=== PATIENT | female | born 1990 | race Caucasian/White ===

== ENCOUNTER 2016-07-03 04:19 | Emergency (ER) | payer OTHER ==
[2016-07-03] MEDS ORDERED: dexameTHASONE 20 MG/5 ML VIAL (J1100) As Ordered ONE (07:14)
[2016-07-03] MEDS ORDERED: MORPHINE 4 MG/ML 1ML SYRINGE As Ordered ONE (07:14)
[2016-07-03] MEDS ORDERED: ONDANSETRON 4MG/2ML VIAL (J2405) As Ordered ONE (07:15)
[2016-07-03] MEDS ORDERED: CLINDAMYCIN INJ 900MG/6ML VIAL As Ordered ONE (07:15)
[2016-07-03 07:55] LABS: CONTROL LINE HCG INT CTR LINE PRESENT; CONTROL LINE MONO INT CTR LINE PRESENT
[2016-07-03 08:02] LABS: ALBUMIN 3.4 GM/DL (3.2-5.2); ALBUMIN/GLOBULIN RATIO 0.81 (1.00-1.93); ALKALINE PHOSPHATASE 82 U/L (45-117); ALT/SGPT 17 U/L (12-78); ANION GAP 10 MEQ/L (8-16); AST/SGOT 10 U/L (15-37); BILIRUBIN,DIRECT 0.2 MG/DL (0.0-0.2); BILIRUBIN,TOTAL 0.7 MG/DL (0.2-1.0); BLOOD UREA NITROGEN 6 MG/DL (7-18); CALCIUM LEVEL 8.5 MG/DL (8.5-10.1); CARBON DIOXIDE LEVEL 23 MEQ/L (21-32); CHLORIDE LEVEL 107 MEQ/L (98-107); CREATININE FOR GFR 0.78 MG/DL (0.55-1.02); GLOMERULAR FILTRATION RATE > 60.0 (>60); GLUCOSE, FASTING 99 MG/DL (70-105); POTASSIUM SERUM 3.5 MEQ/L (3.5-5.1); SODIUM LEVEL 140 MEQ/L (136-145); TOTAL PROTEIN 7.6 GM/DL (6.4-8.2)
[2016-07-03] MEDS ORDERED: ISOVUE-370 76% 100ML VIAL (Q9967) As Ordered ONE (08:14)
[2016-07-03 08:25] LABS: BASO % 0.2 % (0.0-1.0); EOS % 0.3 % (0.0-3.0); LARGE UNSTAINED CELL # 0.2 K/mm3 (0.0-0.4); LARGE UNSTAINED CELL % 1.2 % (0.0-4.0); LYMPH # 1.3 K/mm3 (1.5-6.5); LYMPH % 7.5 % (24.0-44.0); MEAN CORPUSCULAR HEMOGLOBIN 28.5 pg (27.0-33.0); MEAN CORPUSCULAR HGB CONC 34.2 g/dl (32.0-36.5); MEAN CORPUSCULAR VOLUME 83.3 fl (80.0-96.0); MONO # 0.9 K/mm3 (0.0-0.8); MONO % 5.4 % (0.0-5.0); NEUTROPHILS # 14.4 K/mm3 (1.8-7.7); NEUTROPHILS % 85.5 % (36.0-66.0); PLATELET COUNT, AUTOMATED 163 k/mm3 (150-450); RED CELL DISTRIBUTION WIDTH 12.9 % (11.5-14.5); WHITE BLOOD COUNT 16.8 K/mm3 (4.0-10.0)
--- NOTE | 2016-07-03 09:11 | REP ---
CT NECK WITH CONTRAST: HISTORY: Rule out abscess. CONTRAST: Isovue 370, 75 mL. There is mild enlargement of the tonsils. There is extension of the tonsillar enlargement into the soft palate. There is inferior extension of the tonsillar enlargement into the lateral brown of the oropharynx. There is mild mass effect on the oropharynx. The naso- and hypopharynx, larynx and subglottic trachea are normal in appearance. The salivary and thyroid glands are normal. An enlarged lymph node 1.4 cm in width is present in the right internal jugular chain at the level of the princess- and hypopharynx. Enlarged lymph nodes 1.3 and 1.1 cm in width are present in the left internal jugular chain at the level of the princess- and hypopharynx. Small lymph nodes less than 1 cm in size are present in the posterior triangles, submandibular and submental areas. The lung apices are clear. The visualized sinuses are clear. IMPRESSION: The above findings are consistent with tonsillitis and lymphadenitis. There is mild mass effect in the oropharynx. Signed by Prashant Leahy MD 07/03/2016 09:23 A
[2016-07-03] MEDS ORDERED: IBUPROFEN 100 MG/5 ML SUSP UDC DYE FREE As Ordered ONE (09:43)
--- NOTE | 2016-07-03 10:56 | EDDOCDS ---
Nurse's Notes [facility] Name: Lucina Adhikari Age: 26 yrs Sex: Female : 1990 Arrival Date: 07/03/2016 Time: 04:19 Bed I1 / M1 Private MD: Diagnosis: Acute tonsillitis-strep Presentation: 07/03 04:26 Presenting complaint: Patient states: Was seen at Urgent Care yesterday and diagnosed kmg1 with Strep Throat and was given antibiotics. This morning pain is increased, fever persists, difficulty swallowing. Risk factors: Stridor is not present. Drooling is not present. Shortness of breath is not present. Cellulitis is not present. Suicide/Homicide risk assessment- the patient denies having any suicidal and/or homicidal ideations and does not present with any other emotional, behavioral or mental health complaints. Status: Patient is not a service administrator or dependent. Transition of care: patient was not received from another setting of care. 04:26 Acuity: DEBBIE Level 4 [facility] [place] 04:26 Method Of Arrival: Walkin/Carried/Asstd [facility] [place] 09:39 Adult Sepsis Screening: The patient does not have new or worsening altered mentation. jc4 Patient's respiratory rate is less than 22. Systolic blood pressure is greater than 100. Patient has a qSOFA score of 0- Negative Sepsis Screen. Triage Assessment: 04:30 General: Appears in no apparent distress, comfortable, well nourished, well groomed, km Behavior is appropriate for age, cooperative, pleasant. Pain: Location: throat Pain currently is 9 out of 10 on a pain scale. Quality of pain is described as sharp, Also complains of difficulty swallowing. Pt Declines HIV testing. EENT: Reports sore throat. 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 BCP 1 tab once daily (Last dose: 07/02/2016) 2. clindamycin HCl 300 mg Oral cap 1 cap 2 times per day (Last dose: 07/03/2016 04:00) - PMHx: none; - PSHx: none; - Social history: Smoking status: Patient states former smoker of tobacco. No barriers to communication noted, The patient speaks fluent Filipino, Speaks appropriately for age, Preferred Language: Filipino. - Family history: Not pertinent. - : The pt / caregiver states he / she is not on anticoagulants. Home medication list is obtained from the patient. - Exposure Risk Screening:: None identified. Screenin:14 Screening information is obtained from the patient. Primary language is Filipino. Fall jam1 risk: No risks identified. Assistance ADL's: requires no assistance with activities of daily living. Abuse/DV Screen: The patient / caregiver reports he/she is: not in a situation that causes fear, pain or injury. Nutritional screening: No deficits noted. Exposure Risk Screening: None identified. Advance Directives: Currently, there is no health care proxy. There is no active DNR order. There is no living will. 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 Advance directive information has not previously been placed in an [facility] medical record. Further advance directive information is declined. home support is adequate. Assessment: 07:40 General: Appears in no apparent distress, Behavior is appropriate for age, cooperative. ja5 Pain: Location: throat Pain currently is 10 out of 10 on a pain scale. Neurological: Level of Consciousness is awake, alert, Oriented to person, place, time. EENT: Throat is reddened has enlarged tonsils bilaterally. Cardiovascular: Capillary refill < 3 seconds Heart tones S1 S2 present. Respiratory: Airway is patent Respiratory effort is even, unlabored, Respiratory pattern is regular, symmetrical, Breath sounds are clear bilaterally. Derm: Skin is pink, warm & dry. face flushed. 08:30 General: Pt resting on stretcher. No distress noted at this time. Color pink, skin warm jc4 and dry. Respirations easy and full. No difficulty accommodating saliva. IVF infusing well. Pt aware awaiting results of CT. 09:38 General: Pt resting on stretcher. No difficulty swallowing noted at this time. Color jc4 pink, skin warm and dry. Respirations easy and full. Saline lock in place. Pt has called mother who is travelling from [place] to pick her up. 10:53 General: Appears in no apparent distress, Behavior is cooperative, pleasant. Pain: Pain jc4 currently is 7 out of 10 on a pain scale. Neurological: Level of Consciousness is awake, alert, Oriented to person, place, time. EENT: Reports pain when swallowing and is improved since time of arrival. Respiratory: Airway is patent Respiratory effort is even, unlabored, Respiratory pattern is regular, symmetrical. Derm: Skin is pink, warm & dry. Vital Signs: 04:30 BP 113 / 74; Pulse 93; Resp 20; Temp 98.5(TE); Pulse Ox 97.0% on R/A; Weight 72.57 kg [facility] [place] (R); Height 5 ft. 3 in. (160.02 cm) (R); Pain 9/10; 07:13 BP 131 / 78; Pulse 90; Resp 18; Temp 98.0(O); Pulse Ox 97% ; Pain 10/10; jam1 09:33 BP 123 / 58; Pulse 87; Resp 20; Temp 97.2(O); Pulse Ox 96% on R/A; Pain 8/10; jc4 04:30 Body Mass Index 28.34 (72.57 kg, 160.02 cm) [facility] [place] Vitals: 04:30 Log In Time: July 03, 2016 at 04:21. [facility] [place] ED Course: 04:20 Patient visited by Radha Hercules, Reg. hs2 04:20 Patient moved to Waiting 2 04:28 Triage Initiated [facility] [place] 04:57 [facility] Payment Agreement was scanned into [employer] and attached to record. [facility] 05:13 Patient name changed from Lucina\S\\S\Adhikari\S\ to Lucina\S\Barbara\S\Adhikari. EDMS 07:00 Patient moved to I1 / M1 kcs 07:01 Cathy Torres,RN is Primary Nurse. ja5 07:02 Patient visited by Greg Sotelo MD. ml 07:03 Seven Bynum PA-C is PHCP. cc10 07:03 Greg Sotelo MD is Attending Physician. cc10 07:03 Patient visited by Seven Bynum PA-C. cc10 07:04 Keri Bahena, AIDAN is Primary Nurse. jc4 07:13 Seven Bynum PA-C is PHCP. cc10 07:14 Pt greeted and oriented to ED. Patient advised of names of staff involved in care, jam1 location of call [place], wait times and NPO status. Patient has correct armband on for positive identification. Bed in low position. Call light in reach. Side rails up X 1. Door closed. 07:28 BLOOD CULTURES Sent. jc4 07:28 HCG,Serum Qualitative Sent. jc4 07:28 Monoscreen Sent. jc4 07:28 Liver Profile Sent. jc4 07:28 -Blood Culture Sent. jc4 07:28 MED Profile Sent. jc4 07:28 CBC with Diff Sent. jc4 07:29 Inserted saline lock: 20 gauge in right antecubital area The patient tolerated the jc4 procedure well. 07:35 The patient / caregiver is instructed regarding the plan of care and ED course. jc4 07:39 Patient visited by Cathy Torres RN. ja5 08:[address] jc4 08:29 Patient visited by Keri Bahena RN. jc4 08:29 Patient moved to I1 / M1 jc4 09:28 CT Neck With Contrast Returned. EDMS 10:54 Discontinued lock intact, bleeding controlled, pressure dressing applied, No jc4 redness/swelling at site. No procedures done that require assistance. Administered Medications: 07:24 Drug: NS 0.9% 1000 ml [sodium chloride 0.9 % intravenous solution] Route: IV; Rate: ja5 bolus; Site: right antecubital; 09:33 Follow up: BP 123 / 58; Pulse 87 bpm; Resp 20 bpm; Temp 97.2 Oral; Pulse Ox 96% RA; 4 Pain 8/10 Adult; IV Status: Completed infusion; IV Intake: 1000ml 07:25 Drug: morphine 4 mg [morphine 4 mg/mL intravenous cartridge (1 mL)] Route: IVP; Site: [facility] right antecubital; 08:30 Follow up: Response: No significant change. [facility] 07:30 Drug: Ondansetron 4 mg [ondansetron HCl 2 mg/mL intravenous solution (2 mL)] Route: ja5 IVP; Site: right antecubital; 07:36 Drug: Clindamycin 900 mg [clindamycin 900 mg/50 mL in 5 % dextrose intravenous ja5 piggyback] Route: IVPB; Infused Over: 30 mins; Site: right antecubital; 08:48 Follow up: IV Status: Completed infusion; IV Intake: 50ml jc4 07:38 Drug: Dexamethasone 10 mg [dexamethasone 4 mg/mL injection solution] Route: IV; Rate: ja5 bolus; Site: right antecubital; 09:47 Drug: Ibuprofen (10mg/kg) 600 mg [ibuprofen 100 mg/5 mL oral suspension (30 mL)] Route: jc4 PO; Intake: 08:48 IV: 50.00ml; Total: 50.00ml. jc4 09:33 IV: 1000.00ml; Total: 1050.00ml. jc4 Order Results: Lab Order: CBC with Diff; SPEC'M 07/03/16 07:18 Test: WHITE BLOOD COUNT; Value: 16.8; Range: 4.0-10.0; Abnormal: Above high normal; Units: K/mm3; Status: F Test: RED BLOOD COUNT; Value: 4.82; Range: 4.00-5.40; Units: M/mm3; Status: F Test: HEMOGLOBIN; Value: 13.7; Range: 12.0-16.0; Units: g/dl; Status: F Test: HEMATOCRIT; Value: 40.2; Range: 36.0-47.0; Units: %; Status: F Test: MEAN CORPUSCULAR VOLUME; Value: 83.3; Range: 80.0-96.0; Units: fl; Status: F Test: MEAN CORPUSCULAR HEMOGLOBIN; Value: 28.5; Range: 27.0-33.0; Units: pg; Status: F Test: MEAN CORPUSCULAR HGB CONC; Value: 34.2; Range: 32.0-36.5; Units: g/dl; Status: F Test: RED CELL DISTRIBUTION WIDTH; Value: 12.9; Range: 11.5-14.5; Units: %; Status: F Test: PLATELET COUNT, AUTOMATED; Value: 163; Range: 150-450; Units: k/mm3; Status: F Test: NEUTROPHILS %; Value: 85.5; Range: 36.0-66.0; Abnormal: Above high normal; Units: %; Status: F Test: LYMPH %; Value: 7.5; Range: 24.0-44.0; Abnormal: Below low normal; Units: %; Status: F Test: MONO %; Value: 5.4; Range: 0.0-5.0; Abnormal: Above high normal; Units: %; Status: F Test: EOS %; Value: 0.3; Range: 0.0-3.0; Units: %; Status: F Test: BASO %; Value: 0.2; Range: 0.0-1.0; Units: %; Status: F Test: LARGE UNSTAINED CELL %; Value: 1.2; Range: 0.0-4.0; Units: %; Status: F Test: NEUTROPHILS #; Value: 14.4; Range: 1.8-7.7; Abnormal: Above high normal; Units: K/mm3; Status: F Test: LYMPH #; Value: 1.3; Range: 1.5-6.5; Abnormal: Below low normal; Units: K/mm3; Status: F Test: MONO #; Value: 0.9; Range: 0.0-0.8; Abnormal: Above high normal; Units: K/mm3; Status: F Test: EOS #; Value: 0.0; Range: 0.0-0.50; Units: K/mm3; Status: F Test: BASO #; Value: 0.0; Range: 0.0-0.2; Units: K/mm3; Status: F Test: LARGE UNSTAINED CELL #; Value: 0.2; Range: 0.0-0.4; Units: K/mm3; Status: F Lab Order: MED Profile; SPEC'M 07/03/16 07:18 Test: GLUCOSE, FASTING; Value: 99; Range: 70-105; Units: MG/DL; Status: F Test: BLOOD UREA NITROGEN; Value: 6; Range: 7-18; Abnormal: Below low normal; Units: MG/DL; Status: F Test: CREATININE FOR GFR; Value: 0.78; Range: 0.55-1.02; Units: MG/DL; Status: F Test: SODIUM LEVEL; Range: 136-145; Units: MEQ/L; Status: I Test: POTASSIUM SERUM; Range: 3.5-5.1; Units: MEQ/L; Status: I Test: CHLORIDE LEVEL; Range: 98-107; Units: MEQ/L; Status: I Test: CARBON DIOXIDE LEVEL; Range: 21-32; Units: MEQ/L; Status: I Test: ANION GAP; Range: 8-16; Units: MEQ/L; Status: I Test: CALCIUM LEVEL; Range: 8.5-10.1; Units: MG/DL; Status: I Test: GLOMERULAR FILTRATION RATE; Value: > 60.0; Range: >60; Status: F Test: SODIUM LEVEL; Value: 140; Range: 136-145; Units: MEQ/L; Status: F Test: POTASSIUM SERUM; Value: 3.5; Range: 3.5-5.1; Units: MEQ/L; Status: F Test: CHLORIDE LEVEL; Value: 107; Range: 98-107; Units: MEQ/L; Status: F Test: CARBON DIOXIDE LEVEL; Value: 23; Range: 21-32; Units: MEQ/L; Status: F Test: ANION GAP; Value: 10; Range: 8-16; Units: MEQ/L; Status: F Test: CALCIUM LEVEL; Value: 8.5; Range: 8.5-10.1; Units: MG/DL; Status: F Test Note: ; Units are mL/min/1.73 m2 Chronic Kidney Disease Staging per NKF: Stage I & II GFR >=60 Normal to Mildly Decreased Stage III GFR 30-59 Moderately Decreased Stage IV GFR 15-29 Severely Decreased Stage V GFR <15 Very Little GFR Left ESRD GFR <15 on OUTSIDE INSTALLATION MACHINIST Lab Order: Liver Profile; SPEC'M 07/03/16 07:18 Test: AST/SGOT; Value: 10; Range: 15-37; Abnormal: Below low normal; Units: U/L; Status: F Test: ALT/SGPT; Value: 17; Range: 12-78; Units: U/L; Status: F Test: ALKALINE PHOSPHATASE; Value: 82; Range: 45-117; Units: U/L; Status: F Test: BILIRUBIN,TOTAL; Value: 0.7; Range: 0.2-1.0; Units: MG/DL; Status: F Test: BILIRUBIN,DIRECT; Value: 0.2; Range: 0.0-0.2; Units: MG/DL; Status: F Test: TOTAL PROTEIN; Value: 7.6; Range: 6.4-8.2; Units: GM/DL; Status: F Test: ALBUMIN; Value: 3.4; Range: 3.2-5.2; Units: GM/DL; Status: F Test: ALBUMIN/GLOBULIN RATIO; Value: 0.81; Range: 1.00-1.93; Abnormal: Below low normal; Status: F Lab Order: Monoscreen; SPEC'M 07/03/16 07:18 Test: MONO SCRN; Value: NEGATIVE; Range: NEGATIVE; Status: F Lab Order: HCG,Serum Qualitative; SPEC'M 07/03/16 07:18 Test: HCG, SERUM QUALITATIVE; Value: NEGATIVE; Range: NEGATIVE; Status: F Radiology Order: CT Neck With Contrast Test: CT Neck With Contrast REASON FOR EXAMINATION: r/o abscess; CT NECK WITH CONTRAST:; ; HISTORY: Rule out abscess.; ; CONTRAST: Isovue 370, 75 mL.; ; There is mild enlargement of the tonsils. There is extension of the tonsillar; enlargement into the soft palate. There is inferior extension of the tonsillar; enlargement into the lateral brown of the oropharynx. There is mild mass effect; on the oropharynx. The naso- and hypopharynx, larynx and subglottic trachea are; normal in appearance. The salivary and thyroid glands are normal. An enlarged; lymph node 1.4 cm in width is present in the right internal jugular chain at the; level of the princess- and hypopharynx. Enlarged lymph nodes 1.3 and 1.1 cm in width; are present in the left internal jugular chain at the level of the princess- and; hypopharynx. Small lymph nodes less than 1 cm in size are present in the; posterior triangles, submandibular and submental areas. The lung apices are; clear. The visualized sinuses are clear.; ; IMPRESSION:; ; The above findings are consistent with tonsillitis and lymphadenitis. There is; mild mass effect in the oropharynx.; ; ; Signed by; Prashant Leahy MD 07/03/2016 09:23 A; Outcome: 09:26 Discharge ordered by Provider. cc10 10:54 Discharge Assessment: Patient awake, alert and oriented x 3. No cognitive and/or jc4 functional deficits noted. Patient verbalized understanding of disposition instructions. patient administered narcotics - yes. Pt provided with safe discharge. The following High Risk Discharge criteria are identified: None. Discharged to home ambulatory, with uncle. Condition: stable. Discharge instructions given to patient, Instructed on discharge instructions, follow up and referral plans. medication usage, Demonstrated understanding of instructions, medications, Pt was receptive of discharge instructions/ teaching. CT Study completed. Property :Personal belongings accompany Pt. 10:55 Patient left the ED. jc4 Signatures: Dispatcher [employer] [facility] Greg Sotelo MD MD ml Ashley Baxter, RN RN Ines Carroll, RN RN kmg1 Lindsay Stern, ARTIFICIAL INSEMINATOR ARTIFICIAL INSEMINATOR jam1 Keri Bahena, RN RN jc4 Seven Bynum, PA-C PA-C cc10 Kerri Corey [facility] Radha Hercules, Reg Reg hs2 Cathy TorresRN RN ja5 Corrections: (The following items were deleted from the chart) 07:50 07:35 morphine 4 mg IVP in right antecubital ja5 [facility] 07:51 07:36 Ondansetron 4 mg IVP in right antecubital ja5 5 07:52 07:36 Dexamethasone 10 mg IV at bolus in right antecubital 5 [facility] 07:53 07:37 NS 0.9% 1000 ml IV at bolus in right antecubital 5 [facility] 07:54 07:52 Dexamethasone 10 mg IV at bolus in right antecubital [place] [id number] MTDD
--- NOTE | 2016-07-03 10:56 | EDDOCDS ---
Physician Documentation [facility] Name: Lucina Adhikari Age: 26 yrs Sex: Female : 1990 Arrival Date: 07/03/2016 Time: 04:19 Bed I1 / M1 Private MD: Disposition: 07/03/16 09:26 Discharged to Home/Self Care. Impression: Acute tonsillitis - strep. - Condition is Stable. - Discharge Instructions: Tonsillitis. - Prescriptions for lidocaine HCl 2 % Mucous Membrane solution - take 15 milliliter by ORAL route every 3 hours swish, gargle and spit.; 200 milliliter. Prednisone 20 mg Oral Tablet - take 2 tablets by ORAL route once daily for 3 days; 6 tablet. - Medication Reconciliation, Local Pharmacy Hours form. - Follow up: Private Physician; When: Call to arrange an appointment; Reason: Wound/Symptom Recheck, Recheck today's complaints, Worsening of conditions, Continuance of care. - Problem is an ongoing problem. - Symptoms have improved. Historical: - Allergies: Amoxicillin (Rash); - Home Meds: 1. BCP 1 tab once daily (Last dose: 07/02/2016) 2. clindamycin HCl 300 mg Oral cap 1 cap 2 times per day (Last dose: 07/03/2016 04:00) - PMHx: none; - PSHx: none; - Social history: Smoking status: Patient states former smoker of tobacco. No barriers to communication noted, The patient speaks fluent Liberian, Speaks appropriately for age, Preferred Language: Liberian. - Family history: Not pertinent. - : The pt / caregiver states he / she is not on anticoagulants. Home medication list is obtained from the patient. - Exposure Risk Screening:: None identified. 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 3 in. (160.02 cm) (R); Pain 9/10; 07:13 BP 131 / 78; Pulse 90; Resp 18; Temp 98.0(O); Pulse Ox 97% ; Pain 10/10; jam1 09:33 BP 123 / 58; Pulse 87; Resp 20; Temp 97.2(O); Pulse Ox 96% on R/A; Pain 8/10; jc4 04:30 Body Mass Index 28.34 (72.57 kg, 160.02 cm) kmg1 MDM: 04:57 [facility] Payment Agreement was scanned into [employer] and attached to record. slh 07:06 IV Saline Lock ordered. ml 07:06 -Blood Culture (Adults Only), peripheral from different site, or from device/port/PICC ml etc. if present ordered. 07:06 NS 0.9% 1000 ml IV at bolus once ordered. ml 07:06 Ondansetron 4 mg IVP once ordered. ml 07:06 Dexamethasone 10 mg IV at bolus once ordered. ml 07:06 Clindamycin 900 mg IVPB once over 30 mins; dilute in 50mL of NS or D5W ordered. ml 07:07 CBC with Diff Ordered. EDMS 07:07 MED Profile Ordered. EDMS 07:07 -Blood Culture Ordered. EDMS 07:07 Liver Profile Ordered. EDMS 07:07 Monoscreen Ordered. EDMS 07:07 HCG,Serum Qualitative Ordered. EDMS 07:08 morphine 4 mg IVP once ordered. ml 07:12 CT Neck With Contrast Ordered. EDMS 07:16 Financial registration complete. hs2 07:21 -Blood Culture (Adults Only), peripheral from different site, or from device/port/PICC rs6 etc. if present complete. 07:23 BLOOD CULTURES Ordered. EDMS 07:50 morphine 4 mg IVP once ordered. ja5 07:51 Ondansetron 4 mg IVP once ordered. ja5 07:52 Dexamethasone 10 mg IV at bolus once ordered. ja5 07:53 NS 0.9% 1000 ml IV at bolus once ordered. ja5 07:54 Dexamethasone 10 mg IV at bolus once ordered. ja5 08:04 MED Profile Reviewed. cc10 08:04 Liver Profile Reviewed. cc10 08:04 Monoscreen Reviewed. cc10 08:04 HCG,Serum Qualitative Reviewed. cc10 08:36 CBC with Diff Reviewed. cc10 09:43 Ibuprofen (10mg/kg) Suspension 600 mg PO once; not to exceed 800 milligrams ordered. cc10 Administered Medications: 07:24 Drug: NS 0.9% 1000 ml [sodium chloride 0.9 % intravenous solution] Route: IV; Rate: ja5 bolus; Site: right antecubital; 09:33 Follow up: BP 123 / 58; Pulse 87 bpm; Resp 20 bpm; Temp 97.2 Oral; Pulse Ox 96% RA; jc4 Pain 8/10 Adult; IV Status: Completed infusion; IV Intake: 1000ml 07:25 Drug: morphine 4 mg [morphine 4 mg/mL intravenous cartridge (1 mL)] Route: IVP; Site: ja5 right antecubital; 08:30 Follow up: Response: No significant change. jc4 07:30 Drug: Ondansetron 4 mg [ondansetron HCl 2 mg/mL intravenous solution (2 mL)] Route: ja5 IVP; Site: right antecubital; 07:36 Drug: Clindamycin 900 mg [clindamycin 900 mg/50 mL in 5 % dextrose intravenous ja5 piggyback] Route: IVPB; Infused Over: 30 mins; Site: right antecubital; 08:48 Follow up: IV Status: Completed infusion; IV Intake: 50ml jc4 07:38 Drug: Dexamethasone 10 mg [dexamethasone 4 mg/mL injection solution] Route: IV; Rate: ja5 bolus; Site: right antecubital; 09:47 Drug: Ibuprofen (10mg/kg) 600 mg [ibuprofen 100 mg/5 mL oral suspension (30 mL)] Route: jc4 PO; Signatures: Dispatcher [employer] EDDE Greg Sotelo MD MD Ines Maier RN RN kmg1 Keri Bahena RN RN jc4 Seven Bynum PA-C PA-C cc10 Kerri Corey Rebecca, ROLL INSPECTOR ROLL INSPECTOR rs6 Radha Hercules, Reg Reg hs2 Cathy Torres,RN RN ja5 The chart was reviewed and I authenticate all verbal orders and agree with the evaluation and treatment provided.Attachments: 04:57 [facility] Payment Agreement [facility] MTDD
--- NOTE | 2016-07-05 11:56 | EDDOCDS ---
Nurse's Notes [facility] Name: Lucina Adhikari Age: 26 yrs Sex: Female : 1990 Arrival Date: 07/03/2016 Time: 04:19 Bed I1 / M1 Private MD: Diagnosis: Acute tonsillitis-strep Presentation: 07/03 04:26 Presenting complaint: Patient states: Was seen at Urgent Care yesterday and diagnosed kmg1 with Strep Throat and was given antibiotics. This morning pain is increased, fever persists, difficulty swallowing. Risk factors: Stridor is not present. Drooling is not present. Shortness of breath is not present. Cellulitis is not present. Suicide/Homicide risk assessment- the patient denies having any suicidal and/or homicidal ideations and does not present with any other emotional, behavioral or mental health complaints. Status: Patient is not a director of women's services or dependent. Transition of care: patient was not received from another setting of care. 04:26 Acuity: DEBBIE Level 4 [facility] 04:26 Method Of Arrival: Walkin/Carried/[place] [facility] 09:39 Adult Sepsis Screening: The patient does not have new or worsening altered mentation. jc4 Patient's respiratory rate is less than 22. Systolic blood pressure is greater than 100. Patient has a qSOFA score of 0- Negative Sepsis Screen. Triage Assessment: 04:30 General: Appears in no apparent distress, comfortable, well nourished, well groomed, km Behavior is appropriate for age, cooperative, pleasant. Pain: Location: throat Pain currently is 9 out of 10 on a pain scale. Quality of pain is described as sharp, Also complains of difficulty swallowing. Pt Declines HIV testing. EENT: Reports sore throat. 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 BCP 1 tab once daily (Last dose: 07/02/2016) 2. clindamycin HCl 300 mg Oral cap 1 cap 2 times per day (Last dose: 07/03/2016 04:00) - PMHx: none; - PSHx: none; - Social history: Smoking status: Patient states former smoker of tobacco. No barriers to communication noted, The patient speaks fluent Namibian, Speaks appropriately for age, Preferred Language: Namibian. - Family history: Not pertinent. - : The pt / caregiver states he / she is not on anticoagulants. Home medication list is obtained from the patient. - Exposure Risk Screening:: None identified. Screenin:14 Screening information is obtained from the patient. Primary language is Namibian. Fall jam1 risk: No risks identified. Assistance ADL's: requires no assistance with activities of daily living. Abuse/DV Screen: The patient / caregiver reports he/she is: not in a situation that causes fear, pain or injury. Nutritional screening: No deficits noted. Exposure Risk Screening: None identified. Advance Directives: Currently, there is no health care proxy. There is no active DNR order. There is no living will. 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 Advance directive information has not previously been placed in an [facility] medical record. Further advance directive information is declined. home support is adequate. Assessment: 07:40 General: Appears in no apparent distress, Behavior is appropriate for age, cooperative. ja5 Pain: Location: throat Pain currently is 10 out of 10 on a pain scale. Neurological: Level of Consciousness is awake, alert, Oriented to person, place, time. EENT: Throat is reddened has enlarged tonsils bilaterally. Cardiovascular: Capillary refill < 3 seconds Heart tones S1 S2 present. Respiratory: Airway is patent Respiratory effort is even, unlabored, Respiratory pattern is regular, symmetrical, Breath sounds are clear bilaterally. Derm: Skin is pink, warm & dry. face flushed. 08:30 General: Pt resting on stretcher. No distress noted at this time. Color pink, skin warm jc4 and dry. Respirations easy and full. No difficulty accommodating saliva. IVF infusing well. Pt aware awaiting results of CT. 09:38 General: Pt resting on stretcher. No difficulty swallowing noted at this time. Color jc4 pink, skin warm and dry. Respirations easy and full. Saline lock in place. Pt has called mother who is travelling from [place] to pick her up. 10:53 General: Appears in no apparent distress, Behavior is cooperative, pleasant. Pain: Pain jc4 currently is 7 out of 10 on a pain scale. Neurological: Level of Consciousness is awake, alert, Oriented to person, place, time. EENT: Reports pain when swallowing and is improved since time of arrival. Respiratory: Airway is patent Respiratory effort is even, unlabored, Respiratory pattern is regular, symmetrical. Derm: Skin is pink, warm & dry. Vital Signs: 04:30 BP 113 / 74; Pulse 93; Resp 20; Temp 98.5(TE); Pulse Ox 97.0% on R/A; Weight 72.57 kg [facility] (R); Height 5 ft. 3 in. (160.02 cm) (R); Pain 9/10; 07:13 BP 131 / 78; Pulse 90; Resp 18; Temp 98.0(O); Pulse Ox 97% ; Pain 10/10; jam1 09:33 BP 123 / 58; Pulse 87; Resp 20; Temp 97.2(O); Pulse Ox 96% on R/A; Pain 8/10; jc4 04:30 Body Mass Index 28.34 (72.57 kg, 160.02 cm) [facility] Vitals: 04:30 Log In Time: July 03, 2016 at 04:21. [facility] [place] Course: 04:20 Patient visited by Radha Hercules, Reg. hs2 04:20 Patient moved to Waiting 2 04:28 Triage Initiated [facility] [place] 04:57 [facility] Payment Agreement was scanned into GloNav and attached to record. [facility] 05:13 Patient name changed from Lucina\S\\S\Adhikari\S\ to Lucina\S\Barbara\S\Adhikari. EDMS 07:00 Patient moved to I1 / M1 kcs 07:01 Cathy Torres,RN is Primary Nurse. ja5 07:02 Patient visited by Greg Sotelo MD. ml 07:03 Seven Bynum PA-C is PHCP. cc10 07:03 Greg Sotelo MD is Attending Physician. cc10 07:03 Patient visited by Seven Bynum PA-C. cc10 07:04 Keri Bahena, AIDAN is Primary Nurse. jc4 07:13 Seven yBnum PA-C is PHCP. cc10 07:14 Pt greeted and oriented to ED. Patient advised of names of staff involved in care, jam1 location of call [place], wait times and NPO status. Patient has correct armband on for positive identification. Bed in low position. Call light in reach. Side rails up X 1. Door closed. 07:28 BLOOD CULTURES Sent. jc4 07:28 HCG,Serum Qualitative Sent. jc4 07:28 Monoscreen Sent. jc4 07:28 Liver Profile Sent. jc4 07:28 -Blood Culture Sent. jc4 07:28 MED Profile Sent. jc4 07:28 CBC with Diff Sent. jc4 07:29 Inserted saline lock: 20 gauge in right antecubital area The patient tolerated the jc4 procedure well. 07:35 The patient / caregiver is instructed regarding the plan of care and ED course. jc4 07:39 Patient visited by Cathy Torres RN. ja5 08:[address] jc4 08:29 Patient visited by Keri Bahena RN. jc4 08:29 Patient moved to I1 / M1 jc4 09:28 CT Neck With Contrast Returned. EDMS 10:54 Discontinued lock intact, bleeding controlled, pressure dressing applied, No jc4 redness/swelling at site. No procedures done that require assistance. 07/04 10:41 T-Sheet-- Draft Copy was scanned into GloNav and attached to record. gb Administered Medications: 07/03 07:24 Drug: NS 0.9% 1000 ml [sodium chloride 0.9 % intravenous solution] Route: IV; Rate: ja5 bolus; Site: right antecubital; 09:33 Follow up: BP 123 / 58; Pulse 87 bpm; Resp 20 bpm; Temp 97.2 Oral; Pulse Ox 96% RA; jc4 Pain 8/10 Adult; IV Status: Completed infusion; IV Intake: 1000ml 07:25 Drug: morphine 4 mg [morphine 4 mg/mL intravenous cartridge (1 mL)] Route: IVP; Site: ja5 right antecubital; 08:30 Follow up: Response: No significant change. jc4 07:30 Drug: Ondansetron 4 mg [ondansetron HCl 2 mg/mL intravenous solution (2 mL)] Route: ja5 IVP; Site: right antecubital; 07:36 Drug: Clindamycin 900 mg [clindamycin 900 mg/50 mL in 5 % dextrose intravenous ja5 piggyback] Route: IVPB; Infused Over: 30 mins; Site: right antecubital; 08:48 Follow up: IV Status: Completed infusion; IV Intake: 50ml [facility] 07:38 Drug: Dexamethasone 10 mg [dexamethasone 4 mg/mL injection solution] Route: IV; Rate: ja5 bolus; Site: right antecubital; 09:47 Drug: Ibuprofen (10mg/kg) 600 mg [ibuprofen 100 mg/5 mL oral suspension (30 mL)] Route: jc4 PO; Intake: 08:48 IV: 50.00ml; Total: 50.00ml. jc4 09:33 IV: 1000.00ml; Total: 1050.00ml. jc4 Order Results: Lab Order: CBC with Diff; SPEC'M 07/03/16 07:18 Test: WHITE BLOOD COUNT; Value: 16.8; Range: 4.0-10.0; Abnormal: Above high normal; Units: K/mm3; Status: F Test: RED BLOOD COUNT; Value: 4.82; Range: 4.00-5.40; Units: M/mm3; Status: F Test: HEMOGLOBIN; Value: 13.7; Range: 12.0-16.0; Units: g/dl; Status: F Test: HEMATOCRIT; Value: 40.2; Range: 36.0-47.0; Units: %; Status: F Test: MEAN CORPUSCULAR VOLUME; Value: 83.3; Range: 80.0-96.0; Units: fl; Status: F Test: MEAN CORPUSCULAR HEMOGLOBIN; Value: 28.5; Range: 27.0-33.0; Units: pg; Status: F Test: MEAN CORPUSCULAR HGB CONC; Value: 34.2; Range: 32.0-36.5; Units: g/dl; Status: F Test: RED CELL DISTRIBUTION WIDTH; Value: 12.9; Range: 11.5-14.5; Units: %; Status: F Test: PLATELET COUNT, AUTOMATED; Value: 163; Range: 150-450; Units: k/mm3; Status: F Test: NEUTROPHILS %; Value: 85.5; Range: 36.0-66.0; Abnormal: Above high normal; Units: %; Status: F Test: LYMPH %; Value: 7.5; Range: 24.0-44.0; Abnormal: Below low normal; Units: %; Status: F Test: MONO %; Value: 5.4; Range: 0.0-5.0; Abnormal: Above high normal; Units: %; Status: F Test: EOS %; Value: 0.3; Range: 0.0-3.0; Units: %; Status: F Test: BASO %; Value: 0.2; Range: 0.0-1.0; Units: %; Status: F Test: LARGE UNSTAINED CELL %; Value: 1.2; Range: 0.0-4.0; Units: %; Status: F Test: NEUTROPHILS #; Value: 14.4; Range: 1.8-7.7; Abnormal: Above high normal; Units: K/mm3; Status: F Test: LYMPH #; Value: 1.3; Range: 1.5-6.5; Abnormal: Below low normal; Units: K/mm3; Status: F Test: MONO #; Value: 0.9; Range: 0.0-0.8; Abnormal: Above high normal; Units: K/mm3; Status: F Test: EOS #; Value: 0.0; Range: 0.0-0.50; Units: K/mm3; Status: F Test: BASO #; Value: 0.0; Range: 0.0-0.2; Units: K/mm3; Status: F Test: LARGE UNSTAINED CELL #; Value: 0.2; Range: 0.0-0.4; Units: K/mm3; Status: F Lab Order: MED Profile; SPEC'M 07/03/16 07:18 Test: GLUCOSE, FASTING; Value: 99; Range: 70-105; Units: MG/DL; Status: F Test: BLOOD UREA NITROGEN; Value: 6; Range: 7-18; Abnormal: Below low normal; Units: MG/DL; Status: F Test: CREATININE FOR GFR; Value: 0.78; Range: 0.55-1.02; Units: MG/DL; Status: F Test: SODIUM LEVEL; Range: 136-145; Units: MEQ/L; Status: I Test: POTASSIUM SERUM; Range: 3.5-5.1; Units: MEQ/L; Status: I Test: CHLORIDE LEVEL; Range: 98-107; Units: MEQ/L; Status: I Test: CARBON DIOXIDE LEVEL; Range: 21-32; Units: MEQ/L; Status: I Test: ANION GAP; Range: 8-16; Units: MEQ/L; Status: I Test: CALCIUM LEVEL; Range: 8.5-10.1; Units: MG/DL; Status: I Test: GLOMERULAR FILTRATION RATE; Value: > 60.0; Range: >60; Status: F Test: SODIUM LEVEL; Value: 140; Range: 136-145; Units: MEQ/L; Status: F Test: POTASSIUM SERUM; Value: 3.5; Range: 3.5-5.1; Units: MEQ/L; Status: F Test: CHLORIDE LEVEL; Value: 107; Range: 98-107; Units: MEQ/L; Status: F Test: CARBON DIOXIDE LEVEL; Value: 23; Range: 21-32; Units: MEQ/L; Status: F Test: ANION GAP; Value: 10; Range: 8-16; Units: MEQ/L; Status: F Test: CALCIUM LEVEL; Value: 8.5; Range: 8.5-10.1; Units: MG/DL; Status: F Test Note: ; Units are mL/min/1.73 m2 Chronic Kidney Disease Staging per NKF: Stage I & II GFR >=60 Normal to Mildly Decreased Stage III GFR 30-59 Moderately Decreased Stage IV GFR 15-29 Severely Decreased Stage V GFR <15 Very Little GFR Left ESRD GFR <15 on 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 All specimens observed; Status: F Test: BLOOD CULTURE; Value: for 5 days. Results final at that time.; Status: F Test: BLOOD CULTURE; Value: No Growth after 48 hours. All Specimens observed; Status: F Test: BLOOD CULTURE; Value: for 7 days. Results final at that time.; Status: F Lab Order: Liver Profile; SPEC'M 07/03/16 07:18 Test: AST/SGOT; Value: 10; Range: 15-37; Abnormal: Below low normal; Units: U/L; Status: F Test: ALT/SGPT; Value: 17; Range: 12-78; Units: U/L; Status: F Test: ALKALINE PHOSPHATASE; Value: 82; Range: 45-117; Units: U/L; Status: F Test: BILIRUBIN,TOTAL; Value: 0.7; Range: 0.2-1.0; Units: MG/DL; Status: F Test: BILIRUBIN,DIRECT; Value: 0.2; Range: 0.0-0.2; Units: MG/DL; Status: F Test: TOTAL PROTEIN; Value: 7.6; Range: 6.4-8.2; Units: GM/DL; Status: F Test: ALBUMIN; Value: 3.4; Range: 3.2-5.2; Units: GM/DL; Status: F Test: ALBUMIN/GLOBULIN RATIO; Value: 0.81; Range: 1.00-1.93; Abnormal: Below low normal; Status: F Lab Order: Monoscreen; SPEC'M 07/03/16 07:18 Test: MONO SCRN; Value: NEGATIVE; Range: NEGATIVE; Status: F Lab Order: HCG,Serum Qualitative; SPEC' 07/03/16:18 Test: HCG, SERUM QUALITATIVE; Value: NEGATIVE; Range: NEGATIVE; Status: F Lab Order: BLOOD CULTURES; [facility] 07/03/16 07: Test: BLOOD CULTURE; Value: No growth after 24 hours . All specimens observed; Status: F Test: BLOOD CULTURE; Value: for 5 days. Results final at that time.; Status: F Test: BLOOD CULTURE; Value: No Growth after 48 hours. All Specimens observed; Status: F Test: BLOOD CULTURE; Value: for 7 days. Results final at that time.; Status: F Radiology Order: CT Neck With Contrast Test: CT Neck With Contrast REASON FOR EXAMINATION: r/o abscess; CT NECK WITH CONTRAST:; ; HISTORY: Rule out abscess.; ; CONTRAST: Isovue 370, 75 mL.; ; There is mild enlargement of the tonsils. There is extension of the tonsillar; enlargement into the soft palate. There is inferior extension of the tonsillar; enlargement into the lateral brown of the oropharynx. There is mild mass effect; on the oropharynx. The naso- and hypopharynx, larynx and subglottic trachea are; normal in appearance. The salivary and thyroid glands are normal. An enlarged; lymph node 1.4 cm in width is present in the right internal jugular chain at the; level of the princess- and hypopharynx. Enlarged lymph nodes 1.3 and 1.1 cm in width; are present in the left internal jugular chain at the level of the princess- and; hypopharynx. Small lymph nodes less than 1 cm in size are present in the; posterior triangles, submandibular and submental areas. The lung apices are; clear. The visualized sinuses are clear.; ; IMPRESSION:; ; The above findings are consistent with tonsillitis and lymphadenitis. There is; mild mass effect in the oropharynx.; ; ; Signed by; Prashant Leahy MD 07/03/2016 09:23 A; Outcome: 09:26 Discharge ordered by Provider. cc10 10:54 Discharge Assessment: Patient awake, alert and oriented x 3. No cognitive and/or jc4 functional deficits noted. Patient verbalized understanding of disposition instructions. patient administered narcotics - yes. Pt provided with safe discharge. The following High Risk Discharge criteria are identified: None. Discharged to home ambulatory, with uncle. Condition: stable. Discharge instructions given to patient, Instructed on discharge instructions, follow up and referral plans. medication usage, Demonstrated understanding of instructions, medications, Pt was receptive of discharge instructions/ teaching. CT Study completed. Property :Personal belongings accompany Pt. 10:55 Patient left the ED. jc4 Signatures: Dispatcher [employer] EDMS Greg Sotelo MD MD Ashley Baxter, RN RN Ines Carroll RN RN kmg1 Lindsay Stern, EXHIBITIONS AND COLLECTIONS MANAGER EXHIBITIONS AND COLLECTIONS MANAGER jam1 Neela Hung, Reg Reg gb Keri Bahena RN RN jc4 Seven Bynum, PA-C PA-C cc10 Kerri Corey Radha Cardona, Reg Reg hs2 Cathy Torres,RN RN ja5 Corrections: (The following items were deleted from the chart) 07:50 07:35 morphine 4 mg IVP in right antecubital ja5 ja5 07:51 07:36 Ondansetron 4 mg IVP in right antecubital ja5 ja5 07:52 07:36 Dexamethasone 10 mg IV at bolus in right antecubital ja5 ja5 07:53 07:37 NS 0.9% 1000 ml IV at bolus in right antecubital ja5 ja5 07:54 07:52 Dexamethasone 10 mg IV at bolus [facility] Complete MTDD
--- NOTE | 2016-07-05 11:56 | EDDOCDS ---
Physician Documentation [facility] Name: Lucina Adhikari Age: 26 yrs Sex: Female : 1990 Arrival Date: 07/03/2016 Time: 04:19 Bed I1 / M1 Private MD: Disposition: 07/03/16 09:26 Discharged to Home/Self Care. Impression: Acute tonsillitis - strep. - Condition is Stable. - Discharge Instructions: Tonsillitis. - Prescriptions for lidocaine HCl 2 % Mucous Membrane solution - take 15 milliliter by ORAL route every 3 hours swish, gargle and spit.; 200 milliliter. Prednisone 20 mg Oral Tablet - take 2 tablets by ORAL route once daily for 3 days; 6 tablet. - Medication Reconciliation, Local Pharmacy Hours form. - Follow up: Private Physician; When: Call to arrange an appointment; Reason: Wound/Symptom Recheck, Recheck today's complaints, Worsening of conditions, Continuance of care. - Problem is an ongoing problem. - Symptoms have improved. Historical: - Allergies: Amoxicillin (Rash); - Home Meds: 1. BCP 1 tab once daily (Last dose: 07/02/2016) 2. clindamycin HCl 300 mg Oral cap 1 cap 2 times per day (Last dose: 07/03/2016 04:00) - PMHx: none; - PSHx: none; - Social history: Smoking status: Patient states former smoker of tobacco. No barriers to communication noted, The patient speaks fluent Lao, Speaks appropriately for age, Preferred Language: Lao. - Family history: Not pertinent. - : The pt / caregiver states he / she is not on anticoagulants. Home medication list is obtained from the patient. - Exposure Risk Screening:: None identified. 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 3 in. (160.02 cm) (R); Pain 9/10; 07:13 BP 131 / 78; Pulse 90; Resp 18; Temp 98.0(O); Pulse Ox 97% ; Pain 10/10; jam1 09:33 BP 123 / 58; Pulse 87; Resp 20; Temp 97.2(O); Pulse Ox 96% on R/A; Pain 8/10; jc4 04:30 Body Mass Index 28.34 (72.57 kg, 160.02 cm) kmg1 MDM: 04:57 [facility] Payment Agreement was scanned into Needl and attached to record. slh 07:06 IV Saline Lock ordered. ml 07:06 -Blood Culture (Adults Only), peripheral from different site, or from device/port/PICC ml etc. if present ordered. 07:06 NS 0.9% 1000 ml IV at bolus once ordered. ml 07:06 Ondansetron 4 mg IVP once ordered. ml 07:06 Dexamethasone 10 mg IV at bolus once ordered. ml 07:06 Clindamycin 900 mg IVPB once over 30 mins; dilute in 50mL of NS or D5W ordered. ml 07:07 CBC with Diff Ordered. EDMS 07:07 MED Profile Ordered. EDMS 07:07 -Blood Culture Ordered. EDMS 07:07 Liver Profile Ordered. EDMS 07:07 Monoscreen Ordered. EDMS 07:07 HCG,Serum Qualitative Ordered. EDMS 07:08 morphine 4 mg IVP once ordered. ml 07:12 CT Neck With Contrast Ordered. EDMS 07:16 Financial registration complete. hs2 07:21 -Blood Culture (Adults Only), peripheral from different site, or from device/port/PICC rs6 etc. if present complete. 07:23 BLOOD CULTURES Ordered. EDMS 07:50 morphine 4 mg IVP once ordered. ja5 07:51 Ondansetron 4 mg IVP once ordered. ja5 07:52 Dexamethasone 10 mg IV at bolus once ordered. ja5 07:53 NS 0.9% 1000 ml IV at bolus once ordered. ja5 07:54 Dexamethasone 10 mg IV at bolus once ordered. ja5 08:04 MED Profile Reviewed. cc10 08:04 Liver Profile Reviewed. cc10 08:04 Monoscreen Reviewed. cc10 08:04 HCG,Serum Qualitative Reviewed. cc10 08:36 CBC with Diff Reviewed. cc10 09:43 Ibuprofen (10mg/kg) Suspension 600 mg PO once; not to exceed 800 milligrams ordered. cc10 07/04 10:41 T-Sheet-- Draft Copy was scanned into MEDHOST and attached to record. gb Administered Medications: 07/03 07:24 Drug: NS 0.9% 1000 ml [sodium chloride 0.9 % intravenous solution] Route: IV; Rate: ja5 bolus; Site: right antecubital; 09:33 Follow up: BP 123 / 58; Pulse 87 bpm; Resp 20 bpm; Temp 97.2 Oral; Pulse Ox 96% RA; jc4 Pain 8/10 Adult; IV Status: Completed infusion; IV Intake: 1000ml 07:25 Drug: morphine 4 mg [morphine 4 mg/mL intravenous cartridge (1 mL)] Route: IVP; Site: ja5 right antecubital; 08:30 Follow up: Response: No significant change. jc4 07:30 Drug: Ondansetron 4 mg [ondansetron HCl 2 mg/mL intravenous solution (2 mL)] Route: ja5 IVP; Site: right antecubital; 07:36 Drug: Clindamycin 900 mg [clindamycin 900 mg/50 mL in 5 % dextrose intravenous ja5 piggyback] Route: IVPB; Infused Over: 30 mins; Site: right antecubital; 08:48 Follow up: IV Status: Completed infusion; IV Intake: 50ml jc4 07:38 Drug: Dexamethasone 10 mg [dexamethasone 4 mg/mL injection solution] Route: IV; Rate: ja5 bolus; Site: right antecubital; 09:47 Drug: Ibuprofen (10mg/kg) 600 mg [ibuprofen 100 mg/5 mL oral suspension (30 mL)] Route: jc4 PO; Signatures: Dispatcher [employer] EDMA Greg Sotelo MD MD Ines Maier, RN RN kmg1 Neela Hung, Reg Reg gb Keri Bahena RN RN jc4 Seven Bynum PA-C PASalasC cc10 Kerri Corey [facility] Katy Mehta, ARMOR OFFICER ARMOR OFFICER rs6 Radha Hercules, Reg Reg hs2 Cathy Torres,RN RN ja5 The chart was reviewed and I authenticate all verbal orders and agree with the evaluation and treatment provided.Attachments: 04:57 [facility] Payment Agreement [facility] 07/04 10:41 T-Sheet-- Draft Copy Chart Complete MTDD
--- NOTE | 2016-07-05 11:56 | EDDOCDS ---
Physician Documentation [facility] Name: Lucina Adhikari Age: 26 yrs Sex: Female : 1990 Arrival Date: 07/03/2016 Time: 04:19 Bed I1 / M1 Private MD: Disposition: 07/03/16 09:26 Discharged to Home/Self Care. Impression: Acute tonsillitis - strep. - Condition is Stable. - Discharge Instructions: Tonsillitis. - Prescriptions for lidocaine HCl 2 % Mucous Membrane solution - take 15 milliliter by ORAL route every 3 hours swish, gargle and spit.; 200 milliliter. Prednisone 20 mg Oral Tablet - take 2 tablets by ORAL route once daily for 3 days; 6 tablet. - Medication Reconciliation, Local Pharmacy Hours form. - Follow up: Private Physician; When: Call to arrange an appointment; Reason: Wound/Symptom Recheck, Recheck today's complaints, Worsening of conditions, Continuance of care. - Problem is an ongoing problem. - Symptoms have improved. Historical: - Allergies: Amoxicillin (Rash); - Home Meds: 1. BCP 1 tab once daily (Last dose: 07/02/2016) 2. clindamycin HCl 300 mg Oral cap 1 cap 2 times per day (Last dose: 07/03/2016 04:00) - PMHx: none; - PSHx: none; - Social history: Smoking status: Patient states former smoker of tobacco. No barriers to communication noted, The patient speaks fluent [place], Speaks appropriately for age, Preferred Language: Libyan. - Family history: Not pertinent. - : The pt / caregiver states he / she is not on anticoagulants. Home medication list is obtained from the patient. - Exposure Risk Screening:: None identified. 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 3 in. (160.02 cm) (R); Pain 9/10; 07:13 BP 131 / 78; Pulse 90; Resp 18; Temp 98.0(O); Pulse Ox 97% ; Pain 10/10; jam1 09:33 BP 123 / 58; Pulse 87; Resp 20; Temp 97.2(O); Pulse Ox 96% on R/A; Pain 8/10; jc4 04:30 Body Mass Index 28.34 (72.57 kg, 160.02 cm) kmg1 MDM: 04:57 COUNTS INCLUDE 234 BEDS AT THE [facility] Payment Agreement was scanned into [employer] and attached to record. slh 07:06 IV Saline Lock ordered. ml 07:06 -Blood Culture (Adults Only), peripheral from different site, or from device/port/PICC ml etc. if present ordered. 07:06 NS 0.9% 1000 ml IV at bolus once ordered. ml 07:06 Ondansetron 4 mg IVP once ordered. ml 07:06 Dexamethasone 10 mg IV at bolus once ordered. ml 07:06 Clindamycin 900 mg IVPB once over 30 mins; dilute in 50mL of NS or D5W ordered. ml 07:07 CBC with Diff Ordered. EDMS 07:07 MED Profile Ordered. EDMS 07:07 -Blood Culture Ordered. EDMS 07:07 Liver Profile Ordered. EDMS 07:07 Monoscreen Ordered. EDMS 07:07 HCG,Serum Qualitative Ordered. EDMS 07:08 morphine 4 mg IVP once ordered. ml 07:12 CT Neck With Contrast Ordered. EDMS 07:16 Financial registration complete. hs2 07:21 -Blood Culture (Adults Only), peripheral from different site, or from device/port/PICC rs6 etc. if present complete. 07:23 BLOOD CULTURES Ordered. EDMS 07:50 morphine 4 mg IVP once ordered. ja5 07:51 Ondansetron 4 mg IVP once ordered. ja5 07:52 Dexamethasone 10 mg IV at bolus once ordered. ja5 07:53 NS 0.9% 1000 ml IV at bolus once ordered. ja5 07:54 Dexamethasone 10 mg IV at bolus once ordered. ja5 08:04 MED Profile Reviewed. cc10 08:04 Liver Profile Reviewed. cc10 08:04 Monoscreen Reviewed. cc10 08:04 HCG,Serum Qualitative Reviewed. cc10 08:36 CBC with Diff Reviewed. cc10 09:43 Ibuprofen (10mg/kg) Suspension 600 mg PO once; not to exceed 800 milligrams ordered. cc10 07/04 10:41 T-Sheet-- Draft Copy was scanned into [employer] and attached to record. gb Administered Medications: 07/03 07:24 Drug: NS 0.9% 1000 ml [sodium chloride 0.9 % intravenous solution] Route: IV; Rate: ja5 bolus; Site: right antecubital; 09:33 Follow up: BP 123 / 58; Pulse 87 bpm; Resp 20 bpm; Temp 97.2 Oral; Pulse Ox 96% RA; jc4 Pain 8/10 Adult; IV Status: Completed infusion; IV Intake: 1000ml 07:25 Drug: morphine 4 mg [morphine 4 mg/mL intravenous cartridge (1 mL)] Route: IVP; Site: ja5 right antecubital; 08:30 Follow up: Response: No significant change. jc4 07:30 Drug: Ondansetron 4 mg [ondansetron HCl 2 mg/mL intravenous solution (2 mL)] Route: ja5 IVP; Site: right antecubital; 07:36 Drug: Clindamycin 900 mg [clindamycin 900 mg/50 mL in 5 % dextrose intravenous ja5 piggyback] Route: IVPB; Infused Over: 30 mins; Site: right antecubital; 08:48 Follow up: IV Status: Completed infusion; IV Intake: 50ml jc4 07:38 Drug: Dexamethasone 10 mg [dexamethasone 4 mg/mL injection solution] Route: IV; Rate: ja5 bolus; Site: right antecubital; 09:47 Drug: Ibuprofen (10mg/kg) 600 mg [ibuprofen 100 mg/5 mL oral suspension (30 mL)] Route: jc4 PO; Signatures: Dispatcher [employer] EDLA Greg Sotelo MD MD Ines Maier, RN RN kmg1 Neela Hung, Reg Reg gb Keri Bahena RN RN jc4 Seven Bynum PA-C PASalasC cc10 Kerri Corey [facility] Katy Mehta, QUALITY MANAGEMENT NURSE QUALITY MANAGEMENT NURSE rs6 Rahda Hercules, Reg Reg hs2 Cathy Torres,RN RN ja5 The chart was reviewed and I authenticate all verbal orders and agree with the evaluation and treatment provided.Attachments: 04:57 COUNTS INCLUDE 234 BEDS AT THE [facility] Payment Agreement [facility] 07/04 10:41 T-Sheet-- Draft Copy Chart Complete MTDD
== END 2016-07-03 10:55 | disposition home or self-care (01) ==
LOC: M ED 04:19
DX: J03.00 Acute streptococcal tonsillitis, unspecified (principal); Z88.0 Allergy status to penicillin; Z87.891 Personal history of nicotine dependence
CPT/HCPCS: 70491; 80048; 80076; 84703; 85025; 86308; 87040; 96361; 96365; 96375; 99284; J1100; J2405; Q9967

== ENCOUNTER → 2024-12-12 | Outpatient (CLI) | payer BC, SELFPAY ==
[~2024-12-12] MED LIST: TAMO20TA8
== END ==
LOC: M ONCR 09:30
PROVIDERS: ATTEND General Practice
DX: C50.412 Malignant neoplasm of upper-outer quadrant of left female breast (principal); Z17.0 Estrogen receptor positive status [ER+]; Z17.21 Progesterone receptor positive status; Z17.32 Human epidermal growth factor receptor 2 negative status; Z79.810 Long term (current) use of selective estrogen receptor modulators (SERMs); Z98.890 Other specified postprocedural states

== ENCOUNTER 2025-01-15 07:52 | Outpatient (RCR) | payer BC | END 2025-01-18 | LOC: M ONCR 07:52 | PROVIDERS: ATTEND General Practice | DX: Z51.0 Encounter for antineoplastic radiation therapy (principal); C50.412 Malignant neoplasm of upper-outer quadrant of left female breast ==

== ENCOUNTER → 2025-02-17 | Outpatient (RCR) | payer BC ==
[~2025-02-17] MED LIST changes: +MICO2CRE42 TOP
== END ==
LOC: M ONCR 01-20 11:33
PROVIDERS: ATTEND General Practice
DX: Z51.0 Encounter for antineoplastic radiation therapy (principal); C50.412 Malignant neoplasm of upper-outer quadrant of left female breast

== ENCOUNTER 2025-02-25 14:14 | Outpatient (RCR) | payer BC | END 2025-03-20 | LOC: M ONCR 14:14 | PROVIDERS: ATTEND General Practice | DX: Z51.0 Encounter for antineoplastic radiation therapy (principal); C50.412 Malignant neoplasm of upper-outer quadrant of left female breast ==